=== PATIENT | male | born 1970 | race Caucasian/White ===

== ENCOUNTER → 2018-09-13 | Outpatient (CLI) | payer OTHER ==
[~2018-09-13] MED LIST: FISHOIL; MULTIVITAMINS; ULTRAM 50MG TAB50 MG PO; XOPENEX HF1 UDINHALE IH
== END ==
LOC: CAT 08:06
DX: Z13.6 Encounter for screening for cardiovascular disorders (principal); E78.00 Pure hypercholesterolemia, unspecified; I25.10 Atherosclerotic heart disease of native coronary artery without angina pectoris

== ENCOUNTER → 2019-10-15 | Outpatient (CLI) | payer BC | LOC: RAD 08:50 → ULTRA 08:50 → BC 08:50 | DX: N63.20 Unspecified lump in the left breast, unspecified quadrant (principal) ==